=== PATIENT | male | born 1955 | race African-American/Black ===

== ENCOUNTER 2021-09-06 11:15 | Inpatient (IN) ==
[2021-09-06] MEDS ORDERED: SODIUM CHLORIDE 0.9% 1,000 ML IV STA ×2 (11:52→12:47)
[2021-09-06 12:03] LABS: Basophils % 0.3 % (0.0-0.8); Eosinophils % 0.1 % (0.00-10.9); Hematocrit 47.7 VOL% (42.0-52.0); Hemoglobin 16.6 GM/DL (14.0-18.0); Immature Granulocytes % 2.4 %; Immature Granulocytes Absolute 0.17 #; Lymphocytes # 1.1 10*3/uL (1.4-4.0); Lymphocytes % 15.8 % (21.2-54.2); Mean Corpuscular HGB Conc 34.8 GM/DL (32-36); Mean Corpuscular Volume 79.9 FL (87-102); Mean Platelet Volume 10.4 FL (9.6-12.0); Monocytes # 0.7 10*3/uL (0.11-0.8); Monocytes % 10.2 % (1.7-12.7); Neutrophils % 71.2 % (38.7-73.9); Platelet Count 186 T/CUMM (130-400); Red Blood Count 5.97 MC/CUMM (3.8-5.5); Red Cell Distribution Width 14.4 % (9.3-17.3)
[2021-09-06 12:29] LABS: Alanine Aminotransferase 36 U/L (16-61); Albumin 3.1 G/DL (3.4-5.0); Alkaline Phosphatase 100 U/L (45-117); Aspartate Amino Transferase 26 U/L (0-37); Blood Urea Nitrogen 109 MG/DL (7-18); Calcium 8.7 MG/DL (8.5-10.1); Carbon Dioxide 21 MMOL/L (21-32); Chloride 95 MMOL/L (98-107); Glucose 204 MG/DL (74-106); Osmolality,Calculated 292.4 MOS/KG (273-304); Potassium 4.2 MMOL/L (3.5-5.1); Sodium 126 MMOL/L (136-145); Total Protein 8.1 G/DL (6.4-8.2)
[2021-09-06 12:44] LABS: Eosinophils 1 % (0-10); Lymphocytes 19 % (20-55); Metamyelocytes 1 %; Total Cells Counted 100; Toxic Granulation 1+
[2021-09-06] MEDS ORDERED: ACETAMINOPHEN 325 MG TABLET PO PRN (13:40)
[2021-09-06] MEDS ORDERED: SIMETHICONE CHEW 125 MG TABLET PO PRN (13:40)
[2021-09-06] MEDS ORDERED: DOCUSATE SODIUM 100 MG CAPSULE PO PRN (13:40)
[2021-09-06] MEDS ORDERED: GLUCAGON 1 MG VIAL IM PRN ×2 (13:40→13:44)
[2021-09-06] MEDS ORDERED: DEXTROSE 50% 25 GM/50 ML VIAL IV PRN (13:44)
[2021-09-06] MEDS ORDERED: DEXTROSE 10% 250 ML BAG IV PRN (13:55)
[2021-09-06] MEDS: INSULIN LISPRO 100 UNIT/ML SUBCUT SCH ×2 (16:56→20:26)
[2021-09-06] MEDS: SODIUM CHLORIDE 0.9% 1,000 ML IV SCH ×2 (19:48→23:12)
[2021-09-06] MEDS: HEPARIN 5,000 UNIT/1 ML VIAL SUBCUT SCH (20:27)
[2021-09-06] MEDS: ZALEPLON 5 MG CAPSULE PO PRN (20:28)
[2021-09-07 05:51] LABS: Basophils % 0.4 % (0.0-0.8); Eosinophils % 0.2 % (0.00-10.9); Hemoglobin 13.2 GM/DL (14.0-18.0); Immature Granulocytes % 1.8 %; Immature Granulocytes Absolute 0.09 #; Lymphocytes # 0.9 10*3/uL (1.4-4.0); Mean Corpuscular HGB Conc 33.8 GM/DL (32-36); Mean Corpuscular Volume 81.3 FL (87-102); Mean Platelet Volume 10.4 FL (9.6-12.0); Monocytes # 0.6 10*3/uL (0.11-0.8); Monocytes % 11.7 % (1.7-12.7); Neutrophils % 66.9 % (38.7-73.9); Platelet Count 160 T/CUMM (130-400); Red Cell Distribution Width 13.9 % (9.3-17.3); White Blood Count 4.9 T/CUMM (4-12)
[2021-09-07 05:59] LABS: Calcium 8.3 MG/DL (8.5-10.1); Osmolality,Calculated 294.1 MOS/KG (273-304); Potassium 3.2 MMOL/L (3.5-5.1)
[2021-09-07 06:17] LABS: Hypochromia Slight; Lymphocytes 14 % (20-55); Microcytosis Slight; Platelet Estimate Adequate; Total Cells Counted 100
[2021-09-07] MEDS: SODIUM CHLORIDE 0.9% 1,000 ML IV SCH ×3 (07:27→21:16)
[2021-09-07] MEDS: INSULIN LISPRO 100 UNIT/ML SUBCUT SCH ×4 (07:28→21:21)
[2021-09-07] MEDS ORDERED: POTASSIUM CHLORIDE 20 MEQ TABLET PO ONE ×2 (09:00→15:00)
[2021-09-07] MEDS: ASPIRIN EC 81 MG TABLET PO SCH (09:17)
[2021-09-07] MEDS: ROSUVASTATIN 20 MG TABLET PO SCH (09:17)
[2021-09-07] MEDS: PANTOPRAZOLE 40 MG TABLET PO SCH (09:17)
[2021-09-07] MEDS: EZETIMIBE 10 MG TABLET PO SCH (09:17)
[2021-09-07] MEDS: HEPARIN 5,000 UNIT/1 ML VIAL SUBCUT SCH ×2 (09:18→21:18)
[2021-09-07 11:55] LABS: RBC,Urine <1 /HPF (0-4); Sperm,Urine Moderate /HPF (Negative)
[2021-09-07 11:57] LABS: Bilirubin,Urine Negative (Negative); Blood, Urine Negative (Negative); Glucose,Urine (UA) 500 mg/dL (Negative); Ketones,Urine Negative (Negative); Nitrite,Urine Negative (Negative); Protein,Urine Negative (Negative); Urine Appearance Clear (Clear); Urine Color Straw (Yellow); Urine Urobilinogen 0.2 eU/dL (<2.0)
[2021-09-07] MEDS: ZALEPLON 5 MG CAPSULE PO PRN (21:20)
[2021-09-08 05:30] LABS: Basophils % 0.1 % (0.0-0.8); Eosinophils % 0.3 % (0.00-10.9); Hematocrit 38.3 VOL% (42.0-52.0); Hemoglobin 12.6 GM/DL (14.0-18.0); Immature Granulocytes Absolute 0.07 #; Lymphocytes # 1.3 10*3/uL (1.4-4.0); Lymphocytes % 18.6 % (21.2-54.2); Mean Corpuscular HGB Conc 32.9 GM/DL (32-36); Mean Corpuscular Volume 83.6 FL (87-102); Mean Platelet Volume 10.1 FL (9.6-12.0); Monocytes # 0.7 10*3/uL (0.11-0.8); Monocytes % 9.6 % (1.7-12.7); Neutrophils % 70.4 % (38.7-73.9); Platelet Count 170 T/CUMM (130-400); Red Blood Count 4.58 MC/CUMM (3.8-5.5); Red Cell Distribution Width 14.3 % (9.3-17.3); White Blood Count 7.1 T/CUMM (4-12)
[2021-09-08 06:01] LABS: Albumin 2.5 G/DL (3.4-5.0); Bilirubin,Total 0.4 MG/DL (0.20-1.00); Calcium 8.2 MG/DL (8.5-10.1); Osmolality,Calculated 292.1 MOS/KG (273-304); Potassium 4.6 MMOL/L (3.5-5.1); Total Protein 5.3 G/DL (6.4-8.2)
[2021-09-08] MEDS: SODIUM CHLORIDE 0.9% 1,000 ML IV SCH (06:13)
[2021-09-08] MEDS: INSULIN LISPRO 100 UNIT/ML SUBCUT SCH ×3 (08:33→16:07)
[2021-09-08] MEDS: EZETIMIBE 10 MG TABLET PO SCH (09:05)
[2021-09-08] MEDS: ROSUVASTATIN 20 MG TABLET PO SCH (09:05)
[2021-09-08] MEDS: ASPIRIN EC 81 MG TABLET PO SCH (09:06)
[2021-09-08] MEDS: HEPARIN 5,000 UNIT/1 ML VIAL SUBCUT SCH (09:06)
[2021-09-08] MEDS: PANTOPRAZOLE 40 MG TABLET PO SCH (09:06)
[2021-09-08 16:54] VITALS: BP 131/64
== END 2021-09-08 17:08 | disposition home or self-care (01) | DRG 683 ==
LOC: N.ED 11:15 → N.EDINP 13:24 → SUATTDRO 13:24 → N.5E 15:17
PROVIDERS: ADMIT Internal Medicine; ATTEND Family Medicine